=== PATIENT | female | born 1990 | race Two or more races ===

== ENCOUNTER 2017-01-10 23:55 | Observation (INO) | payer MEDICAID ==
[2017-01-11] MEDS ORDERED: TENORMIN50 M1 PO (00:58)
== END 2017-01-11 08:52 ==
LOC: LDR 23:55
PROVIDERS: ADMIT Obstetrics & Gynecology
DX: O47.03 False labor before 37 completed weeks of gestation, third trimester (principal); O23.43 Unspecified infection of urinary tract in pregnancy, third trimester; Z3A.34 34 weeks gestation of pregnancy; Z79.899 Other long term (current) drug therapy; Z88.7 Allergy status to serum and vaccine; Z91.018 Allergy to other foods; Z95.0 Presence of cardiac pacemaker
CPT/HCPCS: G0378